=== PATIENT | female | born 1990 | race Caucasian/White ===

== ENCOUNTER → 2018-03-30 13:00 | Outpatient (CLI) | payer BC, MEDICAID ==
[2009-10-17 11:53] VITALS: BMI 29.0
[2018-03-30 15:11] LABS: APPEARANCE CLEAR (CLEAR); BILIRUBIN NEGATIVE (NEGATIVE); COLOR YELLOW (YELLOW); GLUCOSE NEGATIVE (NEGATIVE); KETONE NEGATIVE (NEGATIVE); NITRITE NEGATIVE (NEGATIVE); PROTEIN NEGATIVE (NEGATIVE); SPECIFIC GRAVITY 1.005 (1.005-1.020); UROBILINOGEN NORMAL (NORMAL)
== END | disposition home or self-care (01) ==
LOC: D.LDO 13:00
PROVIDERS: Obstetrics & Gynecology
DX: O26.899 Other specified pregnancy related conditions, unspecified trimester (principal); Z3A.00 Weeks of gestation of pregnancy not specified

== ENCOUNTER 2018-06-23 05:31 | Inpatient (IN) | payer BC, MEDICAID ==
[~2018-06-23] VITALS: Ht 172.7 cm; Wt 116.4 kg
[2018-06-23] MEDS ORDERED: PROTONIX40 MG (06:21)
[2018-06-23] MEDS ORDERED: AMOXICILLIN875 MG (06:22)
[2018-06-23 06:33] VITALS: BP 123/79; Ht 172.7 cm; Wt 116.4 kg
[2018-06-23 06:55] LABS: APPEARANCE CLEAR (CLEAR); BILIRUBIN NEGATIVE (NEGATIVE); COLOR YELLOW (YELLOW); GLUCOSE NEGATIVE (NEGATIVE); KETONE NEGATIVE (NEGATIVE); NITRITE NEGATIVE (NEGATIVE); PROTEIN NEGATIVE (NEGATIVE); UROBILINOGEN NORMAL (NORMAL)
[2018-06-23 06:56] LABS: HEMATOCRIT 30.3 % (36.0-48.0); HEMOGLOBIN 9.6 g/dL (12-16); MCH 26.7 pg (26.0-34.0); MCHC 31.7 g/dL (31.0-37.0); MCV 84.2 fL (80.0-100.0); MEAN PLATELET VOLUME 10.6 fL (7.4-10.4); RBC 3.6 10x6/uL (4.00-5.40); RDW 13.5 % (11.5-14.5); WBC 9.5 10x3/uL (4.8-10.8)
[2018-06-23 21:00] VITALS: BP 116/77
[2018-06-23 21:30] VITALS: BP 119/65
[2018-06-23 22:00] VITALS: BP 113/65
[2018-06-23 23:00] VITALS: BP 112/65
[2018-06-24 07:19] LABS: BASOPHILS 0.1 % (0-2); EOSINOPHILS 0.3 % (0-7); HEMATOCRIT 27.2 % (36.0-48.0); HEMOGLOBIN 8.7 g/dL (12-16); IMMATURE GRANULOCYTES 0.4 % (0-5); LYMPHOCYTES 12.1 % (15-50); MCH 26.8 pg (26.0-34.0); MCV 83.7 fL (80.0-100.0); MEAN PLATELET VOLUME 10.8 fL (7.4-10.4); MONOCYTES 9.9 % (2-11); NEUTROPHILS 77.2 % (40-80); RBC 3.25 10x6/uL (4.00-5.40); RDW 13.7 % (11.5-14.5); WBC 10.9 10x3/uL (4.8-10.8)
[2018-06-24 07:24] LABS: PLATELET COUNT 169 10x3/uL (130-400)
[2018-06-24 07:31] LABS: RAPID PLASMA REAGIN Non Reactive (Non Reactive)
[2018-06-24 07:45] VITALS: BP 115/68
[2018-06-24 13:07] LABS: BASOPHILS 0.2 % (0-2); EOSINOPHILS 0.5 % (0-7); HEMOGLOBIN 9.2 g/dL (12-16); IMMATURE GRANULOCYTES 0.6 % (0-5); LYMPHOCYTES 13.4 % (15-50); MCH 26.7 pg (26.0-34.0); MCHC 31.7 g/dL (31.0-37.0); MCV 84.3 fL (80.0-100.0); MEAN PLATELET VOLUME 10.8 fL (7.4-10.4); MONOCYTES 9.5 % (2-11); NEUTROPHILS 75.8 % (40-80); RBC 3.44 10x6/uL (4.00-5.40); RDW 13.8 % (11.5-14.5); WBC 13.1 10x3/uL (4.8-10.8)
[2018-06-24 13:11] VITALS: BP 109/70
[2018-06-24 13:13] LABS: PLATELET COUNT 211 10x3/uL (130-400)
[2018-06-24 19:45] VITALS: BP 125/69
[2018-06-25] MEDS ORDERED: HYDROCODON-ACE1 EA10 PO (13:51)
[2018-06-25] MEDS ORDERED: MOTRIN600 MG (13:51)
== END 2018-06-25 15:30 | disposition home or self-care (01) | DRG 785 ==
LOC: D.LD 05:31
PROVIDERS: ADMIT Obstetrics & Gynecology
PROC: 10D00Z1 Extraction of Products of Conception, Low, Open Approach (ICD-10-PCS; principal; 2018-06-23 18:46)
PROC: 0UB70ZZ Excision of Bilateral Fallopian Tubes, Open Approach (ICD-10-PCS; 2018-06-23 18:46)
DX: O99.214 Obesity complicating childbirth (principal); Z3A.39 39 weeks gestation of pregnancy; Z37.0 Single live birth; O99.334 Smoking (tobacco) complicating childbirth; O62.1 Secondary uterine inertia; Z30.2 Encounter for sterilization; Z30.09 Encounter for other general counseling and advice on contraception

== ENCOUNTER → 2018-06-27 19:44 | Outpatient (CLI) | payer BC, MEDICAID ==
[2018-06-23 06:33] VITALS: BMI 39.0
[~2018-06-27 19:44] MED LIST: AMOXICILLIN875 MG; HYDROCODON-ACE1 EA10 PO; MOTRIN600 MG; PROTONIX40 MG
== END | disposition home or self-care (01) ==
LOC: D.LDO 19:44
DX: O26.899 Other specified pregnancy related conditions, unspecified trimester (principal); Z3A.00 Weeks of gestation of pregnancy not specified